=== PATIENT | male | born 1945 | race Caucasian/White ===

== ENCOUNTER 2024-01-12 10:55 | Outpatient (CLI) | payer MEDICARE | END 2024-01-12 10:56 | disposition home or self-care (01) | LOC: CSHWCC 10:55 | PROVIDERS: ATTEND Nurse Practitioner Family | DX: N30.41 Irradiation cystitis with hematuria (principal) | CPT/HCPCS: G0277 ==

== ENCOUNTER 2024-01-13 08:08 | Outpatient (CLI) | payer MEDICARE | END 2024-01-13 08:09 | disposition home or self-care (01) | LOC: CSHWCC 08:08 | PROVIDERS: ATTEND Nurse Practitioner Family | DX: N30.41 Irradiation cystitis with hematuria (principal) | CPT/HCPCS: G0277 ==

== ENCOUNTER 2024-01-14 08:04 | Outpatient (CLI) | payer MEDICARE | END 2024-01-14 08:05 | disposition home or self-care (01) | LOC: CSHWCC 08:04 | PROVIDERS: ATTEND Nurse Practitioner Family | DX: N30.41 Irradiation cystitis with hematuria (principal) | CPT/HCPCS: G0277 ==

== ENCOUNTER 2024-01-19 08:50 | Outpatient (CLI) | payer MEDICARE | END 2024-01-19 08:51 | disposition home or self-care (01) | LOC: CSHWCC 08:50 | PROVIDERS: ATTEND Nurse Practitioner Family | DX: N30.41 Irradiation cystitis with hematuria (principal) | CPT/HCPCS: G0277 ==

== ENCOUNTER 2024-02-10 08:36 | Outpatient (CLI) | payer MEDICARE | END 2024-02-10 08:37 | disposition home or self-care (01) | LOC: CSHWCC 08:36 | PROVIDERS: ATTEND Nurse Practitioner Family | DX: N30.41 Irradiation cystitis with hematuria (principal) | CPT/HCPCS: G0277 ==

== ENCOUNTER 2024-02-12 08:42 | Outpatient (CLI) | payer MEDICARE | END 2024-02-12 08:43 | disposition home or self-care (01) | LOC: CSHWCC 08:42 | PROVIDERS: ATTEND Nurse Practitioner Family | DX: N30.41 Irradiation cystitis with hematuria (principal) | CPT/HCPCS: G0277 ==

== ENCOUNTER 2024-02-13 08:01 | Outpatient (CLI) | payer MEDICARE | END 2024-02-13 08:02 | disposition home or self-care (01) | LOC: CSHWCC 08:01 | PROVIDERS: ATTEND Nurse Practitioner Family | DX: N30.41 Irradiation cystitis with hematuria (principal) | CPT/HCPCS: G0277 ==

== ENCOUNTER 2024-02-16 08:14 | Outpatient (CLI) | payer MEDICARE | END 2024-02-16 08:15 | disposition home or self-care (01) | LOC: CSHWCC 08:14 | PROVIDERS: ATTEND Nurse Practitioner Family | DX: N30.41 Irradiation cystitis with hematuria (principal) | CPT/HCPCS: G0277 ==

== ENCOUNTER 2024-03-10 10:13 | Outpatient (CLI) | payer MEDICARE | END 2024-03-10 10:14 | disposition home or self-care (01) | LOC: CSHWCC 10:13 | PROVIDERS: ATTEND Nurse Practitioner Family | DX: N30.41 Irradiation cystitis with hematuria (principal) | CPT/HCPCS: G0277 ==

== ENCOUNTER 2024-03-12 09:47 | Outpatient (CLI) | payer MEDICARE | END 2024-03-12 09:48 | disposition home or self-care (01) | LOC: CSHWCC 09:47 | PROVIDERS: ATTEND Nurse Practitioner Family | DX: N30.41 Irradiation cystitis with hematuria (principal) | CPT/HCPCS: G0277 ==

== ENCOUNTER 2024-03-15 08:32 | Outpatient (CLI) | payer MEDICARE | END 2024-03-15 08:33 | disposition home or self-care (01) | LOC: CSHWCC 08:32 | PROVIDERS: ATTEND Nurse Practitioner Family | DX: N30.41 Irradiation cystitis with hematuria (principal) | CPT/HCPCS: G0277 ==

== ENCOUNTER 2024-03-16 08:11 | Outpatient (CLI) | payer MEDICARE | END 2024-03-16 08:12 | disposition home or self-care (01) | LOC: CSHWCC 08:11 | PROVIDERS: ATTEND Nurse Practitioner Family | DX: N30.41 Irradiation cystitis with hematuria (principal) | CPT/HCPCS: G0277 ==

== ENCOUNTER 2024-03-17 09:04 | Outpatient (CLI) | payer MEDICARE | END 2024-03-17 09:05 | disposition home or self-care (01) | LOC: CSHWCC 09:04 | PROVIDERS: ATTEND Nurse Practitioner Family | DX: N30.41 Irradiation cystitis with hematuria (principal) | CPT/HCPCS: G0277 ==